=== PATIENT | male | born 1955 | race Caucasian/White ===

== ENCOUNTER → 2017-12-01 | Outpatient (CLI) | payer OTHER ==
[~2017-12-01] MED LIST: ASPIR 8181 M1 PO; COREG3.125 MG PO; DOXYCYCLINE 10100 MG PO; FLOMAX0.4 MG PO; HYDROCHLOROTHIA25 M2 PO; LIPITOR 20 MG T20 M1 PO; MICARDIS HCT 81 EAC1 PO; MICARDIS HCT 81 EACH PO; NAPROSYN500 MG PO; PLAVIX 75 MG TA75 M1 PO; SORINE 80 MG TA80 M1 PO; TOPROL XL25 MG PO; XARELTO20 MG PO; ZOCOR20 MG PO
== END ==
LOC: M.RAD 15:49
DX: M25.851 Other specified joint disorders, right hip (principal); M25.561 Pain in right knee; M25.562 Pain in left knee; R10.2 Pelvic and perineal pain

== ENCOUNTER → 2017-12-23 | Outpatient (CLI) | payer OTHER ==
[2017-12-23 15:49] LABS: CALCIUM 9.3 mg/dL (8.5-10.1); CREATININE 0.7 mg/dL (0.6-1.3); POTASSIUM 4.1 mmol/L (3.5-5.1)
== END ==
LOC: M.LAB 15:21
PROVIDERS: Nurse Practitioner
DX: I10 Essential (primary) hypertension (principal)